=== PATIENT | female | born 1940 | race Hispanic/Latino ===

== ENCOUNTER 2020-06-11 11:45 | Emergency (ER) | payer MEDICARE ==
[~2020-06-11] VITALS: Ht 157.5 cm; Wt 76.2 kg
[2020-06-11] MEDS ORDERED: DIAZEPAM 2 MG TAB PO NR (13:00)
[2020-06-11] MEDS ORDERED: ACETAMINOPHEN 325 MG TAB PO NR (13:00)
[2020-06-11] MEDS ORDERED: LIDOCAINE 4% PATCH TP ONE (13:00)
== END 2020-06-11 14:19 | disposition home or self-care (01) ==
LOC: ER 12:15
DX: M54.6 Pain in thoracic spine (principal); M62.830 Muscle spasm of back; M19.09 Primary osteoarthritis, other specified site; G89.29 Other chronic pain; I10 Essential (primary) hypertension; E11.9 Type 2 diabetes mellitus without complications
CPT/HCPCS: 99283

== ENCOUNTER 2021-08-03 12:28 | Observation (INO) | payer MEDICARE ==
[~2021-08-03] VITALS: Ht 160 cm; Wt 74.8 kg
[2021-08-03 12:59] LABS: BASOPHILS # (AUTO) 0.1 (0.0-0.1); BASOPHILS % 0.6 % (0.0-1.0); EOSINOPHILS # (AUTO) 0.2 (0.0-0.4); EOSINOPHILS % 1.6 % (0.0-6.0); HEMATOCRIT 35.8 % (34.2-44.1); HEMOGLOBIN 11.3 g/dL (12.0-16.0); LYMPHOCYTES % 16.7 % (18.0-39.1); MEAN CORPUSCULAR HEMOGLOBIN 29.1 pg (28-32); MEAN CORPUSCULAR HGB CONC 31.6 g/dL (31-35); MEAN CORPUSCULAR VOLUME 92.3 fL (81-99); MONOCYTES # (AUTO) 1.1 (0.2-0.8); MONOCYTES % 8.9 % (4.4-11.3); NEUTROPHILS # (AUTO) 8.8 (2.1-6.9); NEUTROPHILS % 71.5 % (38.7-80.0); PLATELET COUNT 239 x10e3/uL (140-360); RED BLOOD COUNT 3.88 x10e6/uL (3.6-5.1); RED CELL DISTRIBUTION WIDTH 13.2 % (11.7-14.4)
[2021-08-03 13:13] LABS: INR 0.96; PROTHROMBIN TIME 13.5 seconds (11.9-14.5)
[2021-08-03 13:14] LABS: PARTIAL THROMBOPLASTIN TIME 30.3 seconds (23.8-35.5)
[2021-08-03 13:22] LABS: ALBUMIN 3.2 g/dL (3.5-5.0); ALBUMIN/GLOBULIN RATIO 0.8 (0.8-2.0); ANION GAP 13.1 mmol/L (8-16); CALCIUM 10.2 mg/dL (8.4-10.2); CREATININE, SERUM 1.3 mg/dL (0.57-1.11); POTASSIUM 4.1 mmol/L (3.5-5.1)
[2021-08-03 13:28] LABS: CREATINE KINASE MB 1.1 ng/mL (0-5.0)
[2021-08-03] MEDS ORDERED: ASPIRIN 81 MG CHEW TAB PO ONE (16:15)
[2021-08-03] MEDS ORDERED: SODIUM CHLORIDE FLUSH 10 ML SYR INJ PRN (16:15)
[2021-08-03] MEDS ORDERED: ACETAMINOPHEN 325 MG TAB PO ONE (16:45)
[2021-08-03 18:06] LABS: CREATINE KINASE MB 0.8 ng/mL (0-5.0)
[2021-08-04] VITALS (7 sets, daily range): BP systolic 109–139; BP diastolic 53–72
[2021-08-04 00:52] LABS: CREATINE KINASE MB 0.7 ng/mL (0-5.0)
[2021-08-04] MEDS: ASPIRIN 81 MG ENTERIC COATED PO SCH (09:00)
[2021-08-04 14:54] LABS: CREATINE KINASE MB 0.9 ng/mL (0-5.0)
[2021-08-04] MEDS ORDERED: HUMALOG MI100 UNIT/2 SQ ×2 (17:15→17:16)
[2021-08-04] MEDS ORDERED: OMEPRAZOLE40 MG PO (17:16)
[2021-08-04] MEDS ORDERED: ASPIRIN81 MG PO (17:17)
[2021-08-04] MEDS ORDERED: BENICAR5 MG PO (17:17)
[2021-08-04] MEDS ORDERED: MECLIZINE HCL12.5 MG PO (17:18)
[2021-08-04] MEDS ORDERED: VITAMIN D3 COM1 EACH (17:18)
[2021-08-04] MEDS ORDERED: DEXTROSE 50% SYRINGE 50 ML IV PRN (19:45)
[2021-08-04] MEDS ORDERED: INSULIN LISPRO 100 UNIT/1 ML 3ML VIAL SQ SCH (19:45)
[2021-08-04] MEDS ORDERED: ATENOLOL 50 MG TAB PO ONE (21:00)
[2021-08-04] MEDS: INSULIN LISPRO 100 UNIT/1 ML 3ML VIAL SQ SCH (21:00)
[2021-08-04] MEDS ORDERED: NITROGLYCERIN 0.2 MG/HR PATCH TOP ONE (21:15)
[2021-08-04] MEDS: ENOXAPARIN INJ 80 MG/0.8 ML SYR SC SCH (21:34)
[2021-08-04 22:17] LABS: BASOPHILS # (AUTO) 0.1 (0.0-0.1); BASOPHILS % 0.6 % (0.0-1.0); EOSINOPHILS # (AUTO) 0.2 (0.0-0.4); EOSINOPHILS % 1.8 % (0.0-6.0); HEMATOCRIT 32.3 % (34.2-44.1); HEMOGLOBIN 10.4 g/dL (12.0-16.0); LYMPHOCYTES # (AUTO) 1.7 (1.0-3.2); LYMPHOCYTES % 20.8 % (18.0-39.1); MEAN CORPUSCULAR HGB CONC 32.2 g/dL (31-35); MONOCYTES # (AUTO) 0.8 (0.2-0.8); MONOCYTES % 9.9 % (4.4-11.3); NEUTROPHILS # (AUTO) 5.4 (2.1-6.9); NEUTROPHILS % 66.3 % (38.7-80.0); PLATELET COUNT 231 x10e3/uL (140-360); RED BLOOD COUNT 3.59 x10e6/uL (3.6-5.1); RED CELL DISTRIBUTION WIDTH 13.2 % (11.7-14.4)
[2021-08-04 22:32] LABS: ANION GAP 15.4 mmol/L (8-16); CALCIUM 9.7 mg/dL (8.4-10.2); CREATININE, SERUM 1.66 mg/dL (0.57-1.11); POTASSIUM 4.4 mmol/L (3.5-5.1)
[2021-08-04] MEDS: SODIUM CHLORIDE 0.9% 1000ML 1,000 ML IV SCH (22:39)
[2021-08-05 00:25] VITALS: BP 114/65
[2021-08-05 04:57] VITALS: BP 100/61
[2021-08-05 08:31] VITALS: BP 113/51
[2021-08-05 08:41] VITALS: BP 113/51
[2021-08-05 08:43] VITALS: BP 113/51
[2021-08-05] MEDS: INSULIN LISPRO 100 UNIT/1 ML 3ML VIAL SQ SCH ×2 (08:45→13:09)
[2021-08-05] MEDS: ASPIRIN 81 MG ENTERIC COATED PO SCH (08:51)
[2021-08-05] MEDS: ENOXAPARIN INJ 80 MG/0.8 ML SYR SC SCH (08:51)
[2021-08-05] MEDS ORDERED: ATENOLOL 50 MG TAB PO SCH (09:00)
[2021-08-05] MEDS ORDERED: NITROGLYCERIN 0.2 MG/HR PATCH TOP SCH (09:00)
[2021-08-05] MEDS ORDERED: OMEPRAZOLE 20 MG CAP PO SCH (11:30)
[2021-08-05 11:38] LABS: BASOPHILS # (AUTO) 0.1 (0.0-0.1); BASOPHILS % 0.7 % (0.0-1.0); EOSINOPHILS # (AUTO) 0.3 (0.0-0.4); EOSINOPHILS % 3.3 % (0.0-6.0); HEMATOCRIT 30.4 % (34.2-44.1); HEMOGLOBIN 9.3 g/dL (12.0-16.0); LYMPHOCYTES # (AUTO) 2.4 (1.0-3.2); MEAN CORPUSCULAR HEMOGLOBIN 29.1 pg (28-32); MEAN CORPUSCULAR HGB CONC 30.6 g/dL (31-35); MONOCYTES # (AUTO) 0.9 (0.2-0.8); MONOCYTES % 10.1 % (4.4-11.3); NEUTROPHILS % 57.4 % (38.7-80.0); PLATELET COUNT 242 x10e3/uL (140-360); RED CELL DISTRIBUTION WIDTH 13.3 % (11.7-14.4)
[2021-08-05] MEDS ORDERED: IOPAMIDOL 370 MG/ML 200 ML INFUS..BTL INJ ONE (11:57)
[2021-08-05] MEDS ORDERED: SODIUM CHLORIDE 0.9% 50ML 50 ML ONE (11:57)
[2021-08-05 12:04] VITALS: BP 100/59
[2021-08-05 12:05] LABS: ANION GAP 15.2 mmol/L (8-16); CALCIUM 9.9 mg/dL (8.4-10.2); CREATININE, SERUM 1.41 mg/dL (0.57-1.11); POTASSIUM 4.2 mmol/L (3.5-5.1)
[2021-08-05 12:07] LABS: CHOL/HDL RATIO 3.8 (3.0-3.6)
[2021-08-05] MEDS: SODIUM CHLORIDE 0.9% 1000ML 1,000 ML IV SCH (13:10)
[2021-08-05] MEDS ORDERED: INS LISP PRO/LISP HUMAN 75/25 100 UNITS/ML VIAL SC SCH (21:00)
[2021-08-06] MEDS ORDERED: INS LISP PRO/LISP HUMAN 75/25 100 UNITS/ML VIAL SC SCH (07:30)
== END 2021-08-05 14:18 | disposition home or self-care (01) ==
LOC: ER 13:00 → ERHOLD 16:13 → MED/SURG 08-04 12:19
PROVIDERS: ADMIT Internal Medicine; ATTEND Internal Medicine
DX: R07.89 Other chest pain (principal); R07.81 Pleurodynia; I44.7 Left bundle-branch block, unspecified; N17.9 Acute kidney failure, unspecified; E11.22 Type 2 diabetes mellitus with diabetic chronic kidney disease; I12.9 Hypertensive chronic kidney disease with stage 1 through stage 4 chronic kidney disease, or unspecified chronic kidney disease; N18.32 Chronic kidney disease, stage 3b; M25.512 Pain in left shoulder; M25.511 Pain in right shoulder; J81.1 Chronic pulmonary edema; D64.9 Anemia, unspecified; K21.9 Gastro-esophageal reflux disease without esophagitis; Z90.49 Acquired absence of other specified parts of digestive tract; E11.65 Type 2 diabetes mellitus with hyperglycemia; E88.09 Other disorders of plasma-protein metabolism, not elsewhere classified; Z20.822 Contact with and (suspected) exposure to COVID-19; Z79.82 Long term (current) use of aspirin; Z79.4 Long term (current) use of insulin
CPT/HCPCS: 36415 ×3; 71045; 71260; 80048 ×2; 80053; 80061; 82550 ×2; 82553 ×2; 82948 ×2; 83036; 84484 ×2; 85025 ×3; 85610; 85730; 93005 ×3; 93306; 96360 ×2; 96372; 99284; G0378 ×3; J1650 ×2; J7030 ×2; Q9967; U0002; J1815

== ENCOUNTER 2021-12-09 13:52 | Emergency (ER) | payer MEDICARE, OTHER ==
[~2021-12-09] VITALS: Ht 157.5 cm; Wt 78.9 kg
[~2021-12-09 13:52] MED LIST: ASPIRIN81 MG PO; BENICAR5 MG PO; HUMALOG MI100 UNIT/2 SQ; MECLIZINE HCL12.5 MG PO; OMEPRAZOLE40 MG PO; VITAMIN D3 COM1 EACH
[2021-12-09] MEDS ORDERED: BACTRIM DS TAB1 EACH PO (14:24)
[2021-12-09] MEDS ORDERED: CLEOCIN HCL300 MG PO (14:24)
[2021-12-09 14:40] VITALS: BP 143/86
== END 2021-12-09 14:41 | disposition home or self-care (01) ==
LOC: ER 13:56
DX: L03.90 Cellulitis, unspecified (principal); R23.8 Other skin changes; E11.9 Type 2 diabetes mellitus without complications; I10 Essential (primary) hypertension; Z79.4 Long term (current) use of insulin; Z79.82 Long term (current) use of aspirin
CPT/HCPCS: 99283

== ENCOUNTER → 2024-04-02 | Outpatient (REF) | payer MEDICARE, OTHER ==
[~2024-04-02] MED LIST changes: +BACTRIM DS TAB1 EACH PO; +CLEOCIN HCL300 MG PO
== END ==
LOC: RAD 12:56
PROVIDERS: ATTEND Nurse Practitioner Family
DX: E11.621 Type 2 diabetes mellitus with foot ulcer (principal); M86.171 Other acute osteomyelitis, right ankle and foot; L97.514 Non-pressure chronic ulcer of other part of right foot with necrosis of bone; L97.516 Non-pressure chronic ulcer of other part of right foot with bone involvement without evidence of necrosis
CPT/HCPCS: 71046; 93005

== ENCOUNTER 2024-04-09 09:25 | Outpatient (RCR) | payer MEDICARE, OTHER ==
[~2024-04-09 09:25] MED LIST changes: +COLLAGENASE OINTMENT 30 GM TUBE ONE; +LIDOCAINE VISC 2% SOLN 15 ML UDC ONE; +LIDOCAINE/PRILOCAINE 2.5-2.5% KIT ONE
[2024-04-09] MEDS ORDERED: LIDOCAINE VISC 2% SOLN 15 ML UDC ONE (13:30)
== END 2024-04-13 ==
LOC: WCC 09:25
PROVIDERS: ATTEND Nurse Practitioner Family
DX: E11.621 Type 2 diabetes mellitus with foot ulcer (principal); L97.518 Non-pressure chronic ulcer of other part of right foot with other specified severity
CPT/HCPCS: 87071; 87075; 87186; 87205

== ENCOUNTER 2024-05-01 09:38 | Outpatient (RCR) | payer MEDICARE, OTHER ==
[2024-05-05] MEDS ORDERED: TYLENOL325 MG PO (23:31)
[2024-05-05] MEDS ORDERED: ROSUVASTATIN CA10 MG PO (23:31)
[2024-05-05] MEDS ORDERED: LANSOPRAZOLE15 MG PO (23:31)
[2024-05-05] MEDS ORDERED: FEROSUL325 MG PO (23:31)
[2024-05-16] MEDS ORDERED: Insulin Glargine SQ (10:13)
[2024-05-16] MEDS ORDERED: Insulin Lispro SQ ×2 (10:13)
[2024-05-16] MEDS ORDERED: MUPIROCIN22 GM NS (10:13)
[2024-05-16] MEDS ORDERED: SEROQUEL25 MG PO (10:13)
[2024-05-16] MEDS ORDERED: VANCOMYCIN HCL500 MG IV (10:21)
[2024-05-16] MEDS ORDERED: ATENOLOL50 MG PO (10:39)
== END 2024-05-14 ==
LOC: WCC 09:38
PROVIDERS: ATTEND Nurse Practitioner Family
DX: E11.621 Type 2 diabetes mellitus with foot ulcer (principal); M86.171 Other acute osteomyelitis, right ankle and foot; L97.514 Non-pressure chronic ulcer of other part of right foot with necrosis of bone; B96.89 Other specified bacterial agents as the cause of diseases classified elsewhere
CPT/HCPCS: 11042 ×3; 36415 ×10; 82948 ×10; 93923; 97602 ×2; 99212 ×3; 99213; G0277 ×9

== ENCOUNTER 2024-05-05 14:18 | Inpatient (IN) | payer MEDICARE ==
[~2024-05-05] VITALS: Ht 157.5 cm; Wt 82.4 kg
[~2024-05-05 14:18] MED LIST changes: -COLLAGENASE OINTMENT 30 GM TUBE ONE; -LIDOCAINE VISC 2% SOLN 15 ML UDC ONE; -LIDOCAINE/PRILOCAINE 2.5-2.5% KIT ONE
[2024-05-05 16:49] VITALS: TEMP 98
[2024-05-05 19:23] LABS: BASOPHILS # (AUTO) 0.1 (0.0-0.1); BASOPHILS % 0.8 % (0.0-1.0); EOSINOPHILS # (AUTO) 1.1 (0.0-0.4); EOSINOPHILS % 10.6 % (0.0-6.0); HEMATOCRIT 31.8 % (34.2-44.1); HEMOGLOBIN 9.3 g/dL (12.0-16.0); LYMPHOCYTES # (AUTO) 0.8 (1.0-3.2); MEAN CORPUSCULAR HEMOGLOBIN 26.5 pg (28-32); MEAN CORPUSCULAR HGB CONC 29.2 g/dL (31-35); MEAN CORPUSCULAR VOLUME 90.6 fL (81-99); MONOCYTES # (AUTO) 0.7 (0.2-0.8); NEUTROPHILS # (AUTO) 7.7 (2.1-6.9); NEUTROPHILS % 73.3 % (38.7-80.0); PLATELET COUNT 253 x10e3/uL (140-360); RED BLOOD COUNT 3.51 x10e6/uL (3.6-5.1); RED CELL DISTRIBUTION WIDTH 15.7 % (11.7-14.4); WHITE BLOOD COUNT 10.54 x10e3/uL (4.8-10.8)
[2024-05-05 19:42] LABS: ALBUMIN 2.3 g/dL (3.5-5.0); ALBUMIN/GLOBULIN RATIO 0.5 (0.8-2.0); ANION GAP 16.8 mmol/L (8-16); BILIRUBIN,TOTAL 0.5 mg/dL (0.2-1.2); CALCIUM 8.7 mg/dL (8.4-10.2); CREATININE, SERUM 3.79 mg/dL (0.57-1.11); TOTAL PROTEIN 6.5 g/dL (6.5-8.1)
[2024-05-05 19:44] LABS: POTASSIUM 5.8 mmol/L (3.5-5.1)
[2024-05-05 19:47] LABS: TROPONIN I 0.043 ng/mL (0-0.300)
[2024-05-05 20:32] LABS: BILIRUBIN,URINE SMALL (NEGATIVE); CLARITY,URINE SL CLOUDY (CLEAR); COLOR,URINE AMBER (YELLOW); GLUCOSE, URINE NEGATIVE (NEGATIVE); KETONES,URINE TRACE (NEGATIVE); LEUKOCYTE ESTERASE ,URINE NEGATIVE (NEGATIVE); NITRITE,URINE NEGATIVE (NEGATIVE); PH,URINE 6.5 (5 - 7); PROTEIN,URINE DIPSTICK >=300 (NEGATIVE); URINE UROBILINOGEN 1 mg/dL (0.2 - 1)
[2024-05-05 20:45] LABS: AMORPHOUS SEDIMENT,URINE MANY (FEW); BACTERIA,URINE FEW /HPF; EPITHELIAL CELLS,URINE FEW /LPF; RBC,URINE 0-5 /HPF (0-5); WBC,URINE (MAN) 0-5 /HPF (0-5)
[2024-05-05] MEDS: CALCIUM GLUC 1 G/50 ML NACL 50 ML IV ONE (20:52)
[2024-05-05] MEDS: FUROSEMIDE INJ 10 MG/ML 10 ML VIAL IV ONE (20:52)
[2024-05-05] MEDS: SODIUM BICARBONATE 8.4% INJ 50 ML SYR IV STA (20:52)
[2024-05-05] MEDS: DEXTROSE 50% SYRINGE 50 ML IV ONE (20:52)
[2024-05-05] MEDS: SODIUM CHLORIDE 0.9% 1000ML 1,000 ML IV SCH (20:53)
[2024-05-05] MEDS: DIGOXIN INJ 0.25 MG/ML 2 ML AMP IV STA (20:53)
[2024-05-05] MEDS: INSULIN REGULAR, HUMAN 100 UNIT/1 ML IV ONE (20:54)
[2024-05-05] MEDS ORDERED: PIPERACILLIN/TAZOBACTAM 3.375 GM VIAL ONE (21:09)
[2024-05-05] MEDS: Morphine 4mg INJECTION 4 MG/ML INJ IV PRN (21:42)
[2024-05-05] MEDS: ONDANSETRON HCL INJ 2MG/ML 2ML 2 MG/ML VIAL IV PRN (21:42)
[2024-05-05 21:54] VITALS: PULSE 88; RESP 17
[2024-05-05] MEDS ORDERED: FEROSUL325 MG PO (23:31)
[2024-05-05] MEDS ORDERED: TYLENOL325 MG PO (23:31)
[2024-05-05] MEDS ORDERED: LANSOPRAZOLE15 MG PO (23:31)
[2024-05-05] MEDS ORDERED: ROSUVASTATIN CA10 MG PO (23:31)
[2024-05-06] VITALS (8 sets, daily range): BP systolic 102–125; BP diastolic 51–79; PULSE 85–102; RESP 18–20; TEMP 97.5–99.1; O2SAT 92–100
[2024-05-06] MEDS ORDERED: DEXTROSE 50% SYRINGE 50 ML IV PRN (00:30)
[2024-05-06] MEDS: QUETIAPINE FUMARATE 25 MG TAB PO PRN (01:17)
[2024-05-06] MEDS: SODIUM CHLORIDE 0.9% 250ML 250 ML ONE (06:24)
[2024-05-06 06:35] LABS: BASOPHILS % 0.1 % (0.0-1.0); EOSINOPHILS # (AUTO) 1.1 (0.0-0.4); HEMATOCRIT 25.9 % (34.2-44.1); HEMOGLOBIN 7.4 g/dL (12.0-16.0); LYMPHOCYTES # (AUTO) 0.7 (1.0-3.2); LYMPHOCYTES % 9.2 % (18.0-39.1); MEAN CORPUSCULAR HEMOGLOBIN 26.1 pg (28-32); MEAN CORPUSCULAR HGB CONC 28.6 g/dL (31-35); MEAN CORPUSCULAR VOLUME 91.5 fL (81-99); MONOCYTES # (AUTO) 0.6 (0.2-0.8); MONOCYTES % 7.7 % (4.4-11.3); NEUTROPHILS # (AUTO) 5.4 (2.1-6.9); NEUTROPHILS % 68.5 % (38.7-80.0); PLATELET COUNT 187 x10e3/uL (140-360); RED BLOOD COUNT 2.83 x10e6/uL (3.6-5.1); RED CELL DISTRIBUTION WIDTH 15.5 % (11.7-14.4); WHITE BLOOD COUNT 7.91 x10e3/uL (4.8-10.8)
[2024-05-06 07:16] LABS: ALBUMIN 1.8 g/dL (3.5-5.0); ALBUMIN/GLOBULIN RATIO 0.5 (0.8-2.0); ANION GAP 15.1 mmol/L (8-16); BILIRUBIN,TOTAL 0.6 mg/dL (0.2-1.2); CALCIUM 8.1 mg/dL (8.4-10.2); CREATININE, SERUM 4.68 mg/dL (0.57-1.11); POTASSIUM 5.1 mmol/L (3.5-5.1); TOTAL PROTEIN 5.1 g/dL (6.5-8.1)
[2024-05-06 07:39] LABS: TROPONIN I 0.031 ng/mL (0-0.300)
[2024-05-06] MEDS: PANTOPRAZOLE SOD 40 MG TABEC PO SCH (08:49)
[2024-05-06] MEDS: ASPIRIN 81 MG CHEW TAB PO SCH (08:49)
[2024-05-06] MEDS: INSULIN LISPRO 100 UNIT/1 ML 3ML VIAL SQ SCH (09:49)
[2024-05-06] MEDS ORDERED: SODIUM CHLORIDE 0.9% 1000ML 1,000 ML IV SCH (12:30)
[2024-05-06] MEDS: SODIUM CHLORIDE 0.9% 1000ML 1,000 ML IV SCH (13:42)
[2024-05-06 13:56] LABS: CLARITY,URINE CLOUDY (CLEAR); COLOR,URINE YELLOW (YELLOW); PH,URINE 6.5 (5 - 7)
[2024-05-06 13:57] LABS: BILIRUBIN,URINE SMALL (NEGATIVE); GLUCOSE, URINE NEGATIVE (NEGATIVE); KETONES,URINE TRACE (NEGATIVE); LEUKOCYTE ESTERASE ,URINE NEGATIVE (NEGATIVE); NITRITE,URINE NEGATIVE (NEGATIVE); PROTEIN,URINE DIPSTICK >=300 (NEGATIVE); URINE UROBILINOGEN 0.2 mg/dL (0.2 - 1)
[2024-05-06 14:08] LABS: CREATININE,URINE RANDOM 95.86 mg/dL (47-110)
[2024-05-06 14:15] LABS: BACTERIA,URINE FEW /HPF; EPITHELIAL CELLS,URINE FEW /LPF; RBC,URINE 0-5 /HPF (0-5)
[2024-05-06 15:07] LABS: SODIUM,URINE 81 mmol/L
[2024-05-06] MEDS: HYDROCODONE/APAP 7.5MG-325MG 1 EA TAB PO PRN (15:22)
[2024-05-06 15:37] LABS: TROPONIN I 0.023 ng/mL (0-0.300)
[2024-05-06 16:00] LABS: URIC ACID 8.9 mg/dL (2.6-8.0)
[2024-05-06 16:13] LABS: TOTAL PROTEIN, URINE 4198.4 mg/dL (1-14)
[2024-05-07] VITALS (10 sets, daily range): BP systolic 111–147; BP diastolic 52–70; PULSE 80–100; RESP 16–20; TEMP 97.8–99.1; O2SAT 95–100
[2024-05-07 06:42] LABS: ALBUMIN 1.7 g/dL (3.5-5.0); ALBUMIN/GLOBULIN RATIO 0.4 (0.8-2.0); ANION GAP 18.9 mmol/L (8-16); BILIRUBIN,TOTAL 0.4 mg/dL (0.2-1.2); CALCIUM 7.7 mg/dL (8.4-10.2); CREATININE, SERUM 6.58 mg/dL (0.57-1.11); TOTAL PROTEIN 5.5 g/dL (6.5-8.1)
[2024-05-07 06:43] LABS: POTASSIUM 5.9 mmol/L (3.5-5.1)
[2024-05-07] MEDS: DEXTROSE 50% SYRINGE 50 ML IV ONE (09:30)
[2024-05-07] MEDS: CALCIUM GLUC 1 G/50 ML NACL 50 ML IV ONE (09:30)
[2024-05-07] MEDS: INSULIN REGULAR, HUMAN 100 UNIT/1 ML IV ONE (09:32)
[2024-05-07 09:54] LABS: INR 1.07; PROTHROMBIN TIME 14.4 seconds (11.9-14.5)
[2024-05-07] MEDS: SOD POLYSTYRENE SULFONATE SUSP 15 GM/60 ML BTL PO ONE (10:18)
[2024-05-07] MEDS: LACTULOSE SYRUP 20 GM/30 ML UDC PO ONE (10:19)
[2024-05-07] MEDS: SODIUM BICARBONATE 8.4% VIAL 150 ML in DEXTROSE 5% 1,000 ML IV SCH (10:20)
[2024-05-07] MEDS: DIPHENHYDRAMINE HCL 25 MG CAP PO PRN (12:31)
[2024-05-07] MEDS ORDERED: HEPARIN SOD (PORCINE) 1000 UNIT/ML SDV ONE (15:38)
[2024-05-07] MEDS ORDERED: MANNITOL 25% 12.5GM/50 ML VIAL IV PRN (17:45)
[2024-05-07] MEDS ORDERED: ALBUMIN 25% 12.5GM 0.25 GM/ML BTL IV PRN (17:45)
[2024-05-07] MEDS ORDERED: SODIUM CHLORIDE 0.9% 1000ML 2,000 ML IV PRN (17:45)
[2024-05-07] MEDS ORDERED: HEPARIN SOD (PORCINE) 1000 UNIT/ML SDV IV PRN (18:45)
[2024-05-08] VITALS (8 sets, daily range): BP systolic 101–138; BP diastolic 41–80; PULSE 76–101; RESP 17–18; TEMP 97.2–99.1; O2SAT 94–100
[2024-05-08] MEDS: ACETAMINOPHEN 325 MG TAB PO PRN (04:29)
[2024-05-08 06:11] LABS: ALBUMIN 1.7 g/dL (3.5-5.0); ALBUMIN/GLOBULIN RATIO 0.5 (0.8-2.0); ANION GAP 16.3 mmol/L (8-16); BILIRUBIN,TOTAL 0.3 mg/dL (0.2-1.2); CALCIUM 7.7 mg/dL (8.4-10.2); CREATININE, SERUM 5.54 mg/dL (0.57-1.11); POTASSIUM 4.3 mmol/L (3.5-5.1)
[2024-05-08] MEDS ORDERED: HEPARIN SOD (PORCINE) 1000 UNIT/ML SDV IV PRN (09:45)
[2024-05-08] MEDS: CEFTRIAXONE 2 GM in SODIUM CHLORIDE 0.9% 100 ML IV SCH (11:07)
[2024-05-08] MEDS: METHYLPREDNISOLONE SOD SUCC 40 MG/ML VIAL 1ML IV SCH (11:22)
[2024-05-08 12:24] LABS: BASOPHILS % 0.5 % (0.0-1.0); EOSINOPHILS # (AUTO) 1.1 (0.0-0.4); EOSINOPHILS % 19.1 % (0.0-6.0); HEMATOCRIT 23.9 % (34.2-44.1); HEMOGLOBIN 6.9 g/dL (12.0-16.0); LYMPHOCYTES # (AUTO) 0.9 (1.0-3.2); LYMPHOCYTES % 14.4 % (18.0-39.1); MEAN CORPUSCULAR HGB CONC 28.9 g/dL (31-35); MEAN CORPUSCULAR VOLUME 90.2 fL (81-99); MONOCYTES # (AUTO) 0.5 (0.2-0.8); MONOCYTES % 8.5 % (4.4-11.3); NEUTROPHILS # (AUTO) 3.4 (2.1-6.9); PLATELET COUNT 192 x10e3/uL (140-360); RED BLOOD COUNT 2.65 x10e6/uL (3.6-5.1); RED CELL DISTRIBUTION WIDTH 15.5 % (11.7-14.4); WHITE BLOOD COUNT 5.97 x10e3/uL (4.8-10.8)
[2024-05-08] MEDS: MINERAL OIL 132 ML BTL PR ONE (14:50)
[2024-05-09] VITALS (8 sets, daily range): BP systolic 119–146; BP diastolic 47–66; PULSE 70–90; RESP 16–20; TEMP 97.5–99; O2SAT 90–96
[2024-05-09 06:41] LABS: ANION GAP 16.7 mmol/L (8-16); BILIRUBIN,TOTAL 0.2 mg/dL (0.2-1.2); CALCIUM 7.5 mg/dL (8.4-10.2); CREATININE, SERUM 4.45 mg/dL (0.57-1.11); POTASSIUM 4.7 mmol/L (3.5-5.1); TOTAL PROTEIN 5.5 g/dL (6.5-8.1)
[2024-05-09 07:13] LABS: ALBUMIN 1.8 g/dL (3.5-5.0); ALBUMIN/GLOBULIN RATIO 0.5 (0.8-2.0)
[2024-05-09] MEDS ORDERED: SODIUM CHLORIDE 0.9% 250ML 500 ML IV PRN (09:15)
[2024-05-09] MEDS ORDERED: HEPARIN SOD (PORCINE) 1000 UNIT/ML SDV IV PRN (09:15)
[2024-05-09] MEDS ORDERED: SODIUM CHLORIDE 0.9% 100 ML ONE (09:35)
[2024-05-09] MEDS: SODIUM CHLORIDE 0.9% 100 ML ONE (14:11)
[2024-05-09 18:48] LABS: HEMATOCRIT 24.5 % (34.2-44.1); HEMOGLOBIN 7.4 g/dL (12.0-16.0)
[2024-05-10] VITALS: BP 118/52; PULSE 79; RESP 16; TEMP 98.2; O2SAT 92
[2024-05-10 06:16] VITALS: BP 136/58; PULSE 83; RESP 18; TEMP 97.9; O2SAT 95
[2024-05-10 08:00] VITALS: BP 154/65; PULSE 86; RESP 20; TEMP 99.1; O2SAT 93
[2024-05-10 12:00] VITALS: BP 132/63; PULSE 80; RESP 18; TEMP 98.4; O2SAT 96
[2024-05-10] MEDS: INSULIN LISPRO 100 UNIT/1 ML 3ML VIAL SQ ONE (14:51)
[2024-05-10 16:00] VITALS: BP 129/59; PULSE 85; RESP 22; TEMP 99.1; O2SAT 98
[2024-05-10 20:00] VITALS: BP 135/61; PULSE 84; RESP 18; TEMP 98.2; O2SAT 100
[2024-05-11] VITALS: BP 146/74; PULSE 82; RESP 18; TEMP 98.3; O2SAT 95
[2024-05-11 02:38] VITALS: BP 146/74; PULSE 82; RESP 18; TEMP 98.3; O2SAT 95
[2024-05-11 04:00] VITALS: BP 151/71; PULSE 70; RESP 17; TEMP 98.6; O2SAT 100
[2024-05-11 08:14] VITALS: BP 141/64; PULSE 83; RESP 17; TEMP 98; O2SAT 94
[2024-05-11 08:18] LABS: BASOPHILS % 0.1 % (0.0-1.0); HEMATOCRIT 23.9 % (34.2-44.1); HEMOGLOBIN 7.3 g/dL (12.0-16.0); LYMPHOCYTES # (AUTO) 0.9 (1.0-3.2); LYMPHOCYTES % 7.4 % (18.0-39.1); MEAN CORPUSCULAR HEMOGLOBIN 26.4 pg (28-32); MEAN CORPUSCULAR HGB CONC 30.5 g/dL (31-35); MEAN CORPUSCULAR VOLUME 86.3 fL (81-99); MONOCYTES # (AUTO) 0.5 (0.2-0.8); MONOCYTES % 4.2 % (4.4-11.3); NEUTROPHILS # (AUTO) 10.3 (2.1-6.9); NEUTROPHILS % 87.4 % (38.7-80.0); PLATELET COUNT 234 x10e3/uL (140-360); RED BLOOD COUNT 2.77 x10e6/uL (3.6-5.1); RED CELL DISTRIBUTION WIDTH 15.2 % (11.7-14.4)
[2024-05-11 08:23] LABS: WHITE BLOOD COUNT 11.77 x10e3/uL (4.8-10.8)
[2024-05-11 08:37] LABS: ALBUMIN/GLOBULIN RATIO 0.5 (0.8-2.0); ANION GAP 20.7 mmol/L (8-16); BILIRUBIN,TOTAL 0.3 mg/dL (0.2-1.2); CALCIUM 7.4 mg/dL (8.4-10.2); CREATININE, SERUM 5.48 mg/dL (0.57-1.11); POTASSIUM 4.7 mmol/L (3.5-5.1); TOTAL PROTEIN 5.9 g/dL (6.5-8.1)
[2024-05-11 09:05] LABS: MAGNESIUM 2.3 MG/DL (1.3-2.1); PHOSPHORUS 5.7 MG/DL (2.3-4.7)
[2024-05-11 11:39] VITALS: BP 132/60; PULSE 76; RESP 18; TEMP 98.2; O2SAT 97
[2024-05-11] MEDS ORDERED: INSULIN REGULAR, HUMAN 3ML VL 100 UNIT in SODIUM CHLORIDE 0.45% 100 ML 100 ML IV SCH (14:45)
[2024-05-11] MEDS ORDERED: DEXTROSE 50% SYRINGE 50 ML IV PRN (14:45)
[2024-05-11 16:01] LABS: ANION GAP 20.8 mmol/L (8-16); CALCIUM 7.5 mg/dL (8.4-10.2); CREATININE, SERUM 5.91 mg/dL (0.57-1.11); POTASSIUM 4.8 mmol/L (3.5-5.1)
[2024-05-11] MEDS: INSULIN LISPRO 100 UNIT/1 ML 3ML VIAL SQ SCH (17:00)
[2024-05-11 17:37] LABS: FREE T4 (FREE THYROXINE) 0.94 ng/dL (0.8-1.8); THYROID STIMULATING HORMONE 0.537 uIU/mL (0.350-4.940)
[2024-05-11 20:00] VITALS: BP 168/76; PULSE 56; RESP 18; TEMP 97.5; O2SAT 98
[2024-05-11] MEDS: INSULIN GLARGINE 100 UNITS/ML VIAL SQ SCH (21:46)
[2024-05-12] VITALS (8 sets, daily range): BP systolic 132–168; BP diastolic 70–93; PULSE 56–88; RESP 18–20; TEMP 97.5–99.3; O2SAT 96–100
[2024-05-12 06:07] LABS: HEMATOCRIT 31.8 % (34.2-44.1); HEMOGLOBIN 9.9 g/dL (12.0-16.0); MEAN CORPUSCULAR HEMOGLOBIN 27.9 pg (28-32); MEAN CORPUSCULAR HGB CONC 31.1 g/dL (31-35); MEAN CORPUSCULAR VOLUME 89.6 fL (81-99); PLATELET COUNT 237 x10e3/uL (140-360); RED BLOOD COUNT 3.55 x10e6/uL (3.6-5.1); RED CELL DISTRIBUTION WIDTH 14.5 % (11.7-14.4); WHITE BLOOD COUNT 14.07 x10e3/uL (4.8-10.8)
[2024-05-12 06:45] LABS: ALBUMIN/GLOBULIN RATIO 0.5 (0.8-2.0); ANION GAP 17.1 mmol/L (8-16); BILIRUBIN,TOTAL 0.3 mg/dL (0.2-1.2); CALCIUM 7.5 mg/dL (8.4-10.2); CREATININE, SERUM 4.2 mg/dL (0.57-1.11); POTASSIUM 4.1 mmol/L (3.5-5.1); TOTAL PROTEIN 5.8 g/dL (6.5-8.1)
[2024-05-12 07:49] LABS: HEPATITIS B CORE AB TOTAL NEGATIVE; HEPATITIS B SURFACE AG (P) NEGATIVE
[2024-05-12 10:11] LABS: BAND NEUTROPHILS % (MANUAL) 1 %; LYMPHOCYTES % (MANUAL) 5 % (19-48); MONOCYTES % (MANUAL) 7 % (3.4-9.0); NEUTROPHILS % (MANUAL) 87 % (40-74); PLATELET ESTIMATE ADEQUATE; PLATELET MORPHOLOGY COMMENT NORMAL; RBC MORPHOLOGY COMMENT NORMAL
[2024-05-12] MEDS: MUPIROCIN 2% OINT 22 GM TUBE NS SCH (13:00)
[2024-05-13] VITALS (8 sets, daily range): BP systolic 123–164; BP diastolic 57–91; PULSE 72–84; RESP 16–20; TEMP 97.8–98.8; O2SAT 95–100
[2024-05-13 10:24] LABS: BASOPHILS % 0.1 % (0.0-1.0); EOSINOPHILS % 6.4 % (0.0-6.0); HEMATOCRIT 37.2 % (34.2-44.1); HEMOGLOBIN 11.5 g/dL (12.0-16.0); LYMPHOCYTES # (AUTO) 1.5 (1.0-3.2); MEAN CORPUSCULAR HEMOGLOBIN 27.7 pg (28-32); MEAN CORPUSCULAR HGB CONC 30.9 g/dL (31-35); MEAN CORPUSCULAR VOLUME 89.6 fL (81-99); MONOCYTES # (AUTO) 1.1 (0.2-0.8); MONOCYTES % 6.7 % (4.4-11.3); NEUTROPHILS # (AUTO) 12.6 (2.1-6.9); NEUTROPHILS % 77.2 % (38.7-80.0); PLATELET COUNT 286 x10e3/uL (140-360); RED BLOOD COUNT 4.15 x10e6/uL (3.6-5.1); RED CELL DISTRIBUTION WIDTH 15.3 % (11.7-14.4); WHITE BLOOD COUNT 16.37 x10e3/uL (4.8-10.8)
[2024-05-13 10:44] LABS: ANION GAP 19.2 mmol/L (8-16); CALCIUM 7.7 mg/dL (8.4-10.2); CREATININE, SERUM 6.07 mg/dL (0.57-1.11); POTASSIUM 4.2 mmol/L (3.5-5.1)
[2024-05-13] MEDS: BUMETANIDE INJ 0.25MG/ML 4ML VIAL IV ONE (11:48)
[2024-05-13] MEDS ORDERED: LIDOCAINE HCL 1% LOCAL INJ 20 ML VIAL ONE (13:23)
[2024-05-13] MEDS ORDERED: SODIUM CHLORIDE 0.9% 500ML 500 ML ONE (13:23)
[2024-05-13] MEDS ORDERED: FENTANYL CITRATE/PF 100MCG/2 ML INJ ONE (14:15)
[2024-05-13] MEDS ORDERED: MIDAZOLAM HCL 2 MG/2 ML VIAL ONE (14:15)
[2024-05-13] MEDS ORDERED: SODIUM CHLORIDE 0.9% 250ML 250 ML ONE (14:16)
[2024-05-13] MEDS ORDERED: HEPARIN SOD (PORCINE) 1000 UNIT/ML SDV ONE (14:27)
[2024-05-13] MEDS: HYDRALAZINE HCL 20 MG/ML VIAL IV PRN (19:08)
[2024-05-13] MEDS: INSULIN GLARGINE 100 UNITS/ML VIAL SQ SCH (21:00)
[2024-05-14] VITALS (9 sets, daily range): BP systolic 133–150; BP diastolic 64–80; PULSE 75–89; RESP 17–20; TEMP 97.5–98.8; O2SAT 97–100
[2024-05-14 06:20] LABS: BASOPHILS % 0.1 % (0.0-1.0); EOSINOPHILS # (AUTO) 0.9 (0.0-0.4); EOSINOPHILS % 8.9 % (0.0-6.0); HEMATOCRIT 31.4 % (34.2-44.1); HEMOGLOBIN 9.6 g/dL (12.0-16.0); LYMPHOCYTES % 10.5 % (18.0-39.1); MEAN CORPUSCULAR HEMOGLOBIN 27.9 pg (28-32); MEAN CORPUSCULAR HGB CONC 30.6 g/dL (31-35); MEAN CORPUSCULAR VOLUME 91.3 fL (81-99); MONOCYTES # (AUTO) 0.8 (0.2-0.8); MONOCYTES % 8.5 % (4.4-11.3); NEUTROPHILS % 71.3 % (38.7-80.0); PLATELET COUNT 195 x10e3/uL (140-360); RED BLOOD COUNT 3.44 x10e6/uL (3.6-5.1); RED CELL DISTRIBUTION WIDTH 15.4 % (11.7-14.4)
[2024-05-14 06:56] LABS: CALCIUM 7.6 mg/dL (8.4-10.2); CREATININE, SERUM 3.97 mg/dL (0.57-1.11)
[2024-05-14] MEDS: SODIUM CHLORIDE 0.9% 250ML 250 ML IV ONE (20:39)
[2024-05-15 05:24] LABS: BASOPHILS % 0.2 % (0.0-1.0); EOSINOPHILS # (AUTO) 1.2 (0.0-0.4); EOSINOPHILS % 12.1 % (0.0-6.0); HEMATOCRIT 31.4 % (34.2-44.1); HEMOGLOBIN 9.4 g/dL (12.0-16.0); LYMPHOCYTES % 9.7 % (18.0-39.1); MEAN CORPUSCULAR HEMOGLOBIN 27.6 pg (28-32); MEAN CORPUSCULAR HGB CONC 29.9 g/dL (31-35); MEAN CORPUSCULAR VOLUME 92.1 fL (81-99); MONOCYTES # (AUTO) 0.9 (0.2-0.8); MONOCYTES % 9.5 % (4.4-11.3); NEUTROPHILS # (AUTO) 6.7 (2.1-6.9); NEUTROPHILS % 67.7 % (38.7-80.0); PLATELET COUNT 190 x10e3/uL (140-360); RED BLOOD COUNT 3.41 x10e6/uL (3.6-5.1); RED CELL DISTRIBUTION WIDTH 15.6 % (11.7-14.4); WHITE BLOOD COUNT 9.87 x10e3/uL (4.8-10.8)
[2024-05-15 05:54] LABS: ALBUMIN 1.8 g/dL (3.5-5.0); ALBUMIN/GLOBULIN RATIO 0.5 (0.8-2.0); ANION GAP 18.4 mmol/L (8-16); BILIRUBIN,TOTAL 0.3 mg/dL (0.2-1.2); CALCIUM 7.6 mg/dL (8.4-10.2); CREATININE, SERUM 5.84 mg/dL (0.57-1.11); POTASSIUM 4.4 mmol/L (3.5-5.1); TOTAL PROTEIN 5.3 g/dL (6.5-8.1)
[2024-05-15] MEDS ORDERED: HEPARIN SOD (PORCINE) 1000 UNIT/ML SDV IV PRN ×2 (09:00)
[2024-05-15 09:01] VITALS: BP 143/72; PULSE 72; RESP 18; TEMP 98.8; O2SAT 100
[2024-05-15 12:16] VITALS: BP 171/73; PULSE 72; RESP 19; TEMP 98.8; O2SAT 100
[2024-05-15 16:41] VITALS: BP 143/89; PULSE 76; RESP 19; TEMP 98.2; O2SAT 100
[2024-05-15 20:00] VITALS: BP 157/60; PULSE 82; RESP 18; TEMP 98.5; O2SAT 97
[2024-05-15 21:00] VITALS: BP 157/60; PULSE 82; RESP 18; TEMP 98.5; O2SAT 97
[2024-05-16 00:02] VITALS: BP 119/62; PULSE 64; RESP 18; TEMP 97.8; O2SAT 100
[2024-05-16 04:00] VITALS: BP 164/71; PULSE 79; RESP 18; TEMP 98.5; O2SAT 98
[2024-05-16 08:00] VITALS: BP 163/61; PULSE 79; RESP 18; TEMP 98.5; O2SAT 98
[2024-05-16 08:28] VITALS: BP 163/61; PULSE 75; RESP 20; TEMP 97.7; O2SAT 98
[2024-05-16] MEDS ORDERED: SEROQUEL25 MG PO (10:13)
[2024-05-16] MEDS ORDERED: Insulin Glargine SQ (10:13)
[2024-05-16] MEDS ORDERED: MUPIROCIN22 GM NS (10:13)
[2024-05-16] MEDS ORDERED: Insulin Lispro SQ ×2 (10:13)
[2024-05-16] MEDS ORDERED: VANCOMYCIN HCL500 MG IV (10:21)
[2024-05-16] MEDS ORDERED: ATENOLOL50 MG PO (10:39)
[2024-05-16 12:10] VITALS: BP 162/59; PULSE 65; RESP 18; TEMP 98.1; O2SAT 100
== END 2024-05-16 14:10 | DRG 673 ==
LOC: ER 17:40 → ERHOLD 20:26 → MED/SURG2 22:56
PROVIDERS: ADMIT Internal Medicine; ATTEND Internal Medicine
PROC: 5A1D70Z Performance of Urinary Filtration, Intermittent, Less than 6 Hours Per Day (ICD-10-PCS; principal; 2024-05-07)
PROC: 02HV33Z Insertion of Infusion Device into Superior Vena Cava, Percutaneous Approach (ICD-10-PCS; 2024-05-07)
PROC: 30233N1 Transfusion of Nonautologous Red Blood Cells into Peripheral Vein, Percutaneous Approach (ICD-10-PCS; 2024-05-11)
PROC: 0JH63XZ Insertion of Tunneled Vascular Access Device into Chest Subcutaneous Tissue and Fascia, Percutaneous Approach (ICD-10-PCS; 2024-05-14)
PROC: 02H633Z Insertion of Infusion Device into Right Atrium, Percutaneous Approach (ICD-10-PCS; 2024-05-14)
DX: N17.0 Acute kidney failure with tubular necrosis (principal); E11.10 Type 2 diabetes mellitus with ketoacidosis without coma; J18.9 Pneumonia, unspecified organism; K72.00 Acute and subacute hepatic failure without coma; I12.0 Hypertensive chronic kidney disease with stage 5 chronic kidney disease or end stage renal disease; E11.621 Type 2 diabetes mellitus with foot ulcer; L97.516 Non-pressure chronic ulcer of other part of right foot with bone involvement without evidence of necrosis; E11.69 Type 2 diabetes mellitus with other specified complication; M86.9 Osteomyelitis, unspecified; R44.0 Auditory hallucinations; E11.22 Type 2 diabetes mellitus with diabetic chronic kidney disease; N18.6 End stage renal disease; D63.1 Anemia in chronic kidney disease; E88.09 Other disorders of plasma-protein metabolism, not elsewhere classified; L89.616 Pressure-induced deep tissue damage of right heel; E11.51 Type 2 diabetes mellitus with diabetic peripheral angiopathy without gangrene; E78.5 Hyperlipidemia, unspecified; I48.91 Unspecified atrial fibrillation; E87.5 Hyperkalemia; J32.9 Chronic sinusitis, unspecified; L08.9 Local infection of the skin and subcutaneous tissue, unspecified; F03.90 Unspecified dementia, unspecified severity, without behavioral disturbance, psychotic disturbance, mood disturbance, and anxiety; R00.0 Tachycardia, unspecified; I49.1 Atrial premature depolarization; R29.6 Repeated falls; E86.0 Dehydration; E86.9 Volume depletion, unspecified; K59.00 Constipation, unspecified; T36.8X5A Adverse effect of other systemic antibiotics, initial encounter; Z79.4 Long term (current) use of insulin; Z79.82 Long term (current) use of aspirin; Z90.49 Acquired absence of other specified parts of digestive tract; Z95.820 Peripheral vascular angioplasty status with implants and grafts; Z53.29 Procedure and treatment not carried out because of patient's decision for other reasons; Z53.09 Procedure and treatment not carried out because of other contraindication
CPT/HCPCS: 36415; 36556; 36558; 70450; 71045; 72125; 74470; 76770; 76937; 77001; 80048; 80053; 81001; 82550; 82570; 82948; 83036; 83735; 83880; 84100; 84156; 84300; 84439; 84443; 84484; 84550; 85007; 85025; 85027; 85610; 86704; 86706; 86850; 86900; 86920; 87040; 87086; 87340; 93005; 96372; 99152; 99252; 99284; C1752; C1769; C1892; J0360; J0612; J0690; J0696; J1160; J1644; J1815; J1940; J2003; J2150; J2250; J2270; J2405; J2543; J2919; J7030; J7040; J7050; J7070; J7799; P9016